=== PATIENT | female | born 2000 | race African-American/Black ===

== ENCOUNTER 2023-02-25 10:04 | Emergency (ER) | payer MEDICAID ==
[~2023-02-25 10:04] MED LIST: OME20T PO
[2023-02-25 10:38] LABS: Basophils # (auto) 0 10 ^3/uL (0-0.2); Eosinophils # (auto) 0 10 ^3/uL (0-0.8); Hemoglobin 13.2 g/dL (12.2-16.2); Mean Corpuscular Hgb Conc. 31.1 g/dL (32.0-36.0); Monocytes % (auto) 8.8 % (0.0-12.0); Nucleated Red Blood Cells % 0.1 %
[2023-02-25 10:50] LABS: Basophils % (auto) 0.2 % (0.0-2.0); Eosinophils % (auto) 0.1 % (0.0-7.0); Hematocrit 42.3 % (36.0-46.0); Lymphocytes # (auto) 1.5 10 ^3/uL (0.4-5.4); Lymphocytes % (auto) 12.8 % (10.0-50.0); Mean Corpuscular Hemoglobin 26.7 pg (28.0-32.0); Mean Corpuscular Volume 85.9 fL (80.0-100.0); Neutrophils % (auto) 78.1 % (37.0-80.0); Red Blood Cells 4.93 10^6/uL (4.0-5.20); Red Cell Distribution Width 16.8 % (11.8-14.3); White Blood Cell 11.6 10^3/uL (4.4-10.8)
[2023-02-25 10:58] LABS: Albumin 5.4 g/dL (3.2-4.8); Alkaline Phosphatase 64 U/L (46-116); Anion Gap 9.1 (5-15); Aspartate Aminotransferase 11 U/L (13-40); BUN/Creatinine Ratio 21.7 (10.0-20.0); Blood Urea Nitrogen 18 mg/dL (9-23); Calcium 10.7 mg/dL (8.5-10.1); Carbon Dioxide 21.9 mmol/L (20-30); Chloride 109 mmol/L (98-107); Glucose 91 mg/dL (74-106); Potassium 3.7 mmol/L (3.5-5.1); Sodium 140 mmol/L (136-145)
[2023-02-25 10:59] LABS: Bilirubin, Total 0.9 mg/dL (0.2-1.0); Total Protein 9.1 g/dL (5.7-8.2)
[2023-02-25 11:00] LABS: Alanine Aminotransferase < 9 U/L (7-40)
[2023-02-25 11:51] LABS: Urine Bacteria NONE SEEN /hpf (None Seen); Urine Blood 3+ /uL (Negative); Urine Clarity HAZY (Clear); Urine Color Red (Yellow); Urine Mucus FEW (None Seen); Urine Protein, UAD 2+ (Negative); Urine Specific Gravity 1.029 (1.001-1.035); Urine WBC 169 /hpf (0 - 5); Urine WBC Clumps PRESENT /hpf (None Seen)
[2023-02-25] MEDS ORDERED: SODIUM CHLORIDE 0.9% 1,000 ML IV ONE (13:30)
[2023-02-25] MEDS ORDERED: cefTRIAXone 1GM/50ML D5W 50 ML IV ONE (13:30)
[2023-02-25] MEDS ORDERED: NITR-87 PO (13:49)
[2023-02-25] MEDS ORDERED: LIDOCAINE VISCOUS 2% 15ML UD PO ONE (14:00)
[2023-02-25] MEDS ORDERED: DONNATAL 5ml ORAL Elix (BELLADONNA ALK-PHENOBARB) PO ONE (14:00)
[2023-02-25] MEDS ORDERED: MAALOX PLUS or MAALOX 30 ML PO ONE (14:00)
[2023-02-25] MEDS ORDERED: PANT40TA2 PO (15:28)
[2023-02-25 20:23] VITALS: BP 125/63; PULSE 65; RESP 16; TEMP 98.6; O2SAT 100
== END 2023-02-25 20:37 | disposition admitted as inpatient to this hospital (09) ==
LOC: ER 10:04
DX: K29.70 Gastritis, unspecified, without bleeding (principal); R10.2 Pelvic and perineal pain; N39.0 Urinary tract infection, site not specified; F15.90 Other stimulant use, unspecified, uncomplicated; Z79.899 Other long term (current) drug therapy
CPT/HCPCS: 36415; 74176; 80053; 81001; 84702; 85025; 96365; 99285; J0696